=== PATIENT | female | born 1950 | race Two or more races ===

== ENCOUNTER 2023-05-01 11:12 | Emergency (ER) | payer OTHER, SELFPAY ==
[2023-05-01 11:23] VITALS: BP 137/67; PULSE 67; RESP 16; TEMP 36.9; O2SAT 97; BMI 24.6
--- NOTE | 2023-05-01 11:35 | CT_ITS ---
The [address] [address] Patient Name: CARINE SAEZ MRN: [id number] date: 1950 Sex: F Assigned Patient Location: ER Current Patient Location: ER Accession/Order Number: [id number] Exam Date: 05/01/2023 11:46 Report Date: 05/01/2023 12:38 At the request of: EDIS GOOD Procedure: CT abdomen pelvis wo con CT ABDOMEN AND PELVIS WITHOUT CONTRAST: 05/01/2023 11:46 AM EST Clinical Data: left sided abdominal pain Comparison: No previous Unenhanced helically acquired data per protocol. The lack of IV contrast material hampers evaluation of the viscera, for adenopathy, and of the vasculature. The lack of oral contrast medium to some extent hampers evaluation of the bowel. All CT scans at this facility use dose modulation, iterative reconstruction, and/or weight based dosing when appropriate to reduce radiation dose to as low as reasonably achievable. FINDINGS: LOWER THORAX: There is a slightly lobular solid nodule at the left lung base measuring 13 mm. It is relatively well-defined LIVER: No acute findings. SPLEEN: No acute findings. GB/BILIARY: Status post cholecystectomy. Biliary tree is not dilated. PANCREAS: No acute findings. ADRENALS: No acute findings. KIDNEYS/URETERS: Kidney are symmetric in size and density on this unenhanced study. There is no perinephric stranding. No calculi. No hydronephrosis or hydroureter. VESSELS: No AAA ABDOMINAL NODES: No obvious adenopathy. PELVIC NODES: No obvious adenopathy. BLADDER: Nearly empty. No calculi REPRODUCTIVE: Uterus is anteverted. The left ovary is unremarkable in appearance at CT. The right is either absent or is immediate juxtaposition and inseparable from a loop of bowel PERITONEUM: No free air. No free fluid. EXTRAPERITONEUM: No acute findings. BOWEL: No GI obstruction. Modest amount stool throughout most of the colon. A moderate amount of stool in the rectosigmoid region. The stomach contains a mild amount of fluid and air. Small bowel contains a mild amount of debris and air. Extensive splenic flecture and left colonic diverticulosis. On this study performed without oral contrast medium, no focally thickened loop of bowel is apparent. BODY WALL: Minimal umbilical hernia containing fat. Right inguinal hernia containing fat. BONES: No acute finding. Multilevel thoracolumbar DDD and some associated spondylosis. Facet DJD at several levels. OTHER: None CT/CT abdomen pelvis wo con IMPRESSION: 1. Extensive left colonic diverticulosis. However, no distinct evidence of diverticulitis on this exam. 2. No calculi. No hydronephrosis or hydroureter. 3. 13 mm solid nodule at the left lung base. To evaluate for multiplicity consideration to full chest CT at this time. Electronically authenticated by: SANDRO BLACK Date: 05/01/2023 12:38
[2023-05-01] MEDS: HYOSCYAMINE SULFATE 0.125 MG TAB.SUBL SL (12:10)
[2023-05-01] MEDS: 0.9 % SODIUM CHLORIDE 1,000 ML 999 ML IV (12:10)
[2023-05-01] MEDS: ONDANSETRON PF 4 MG/2 ML VIAL IV (12:10)
[2023-05-01 12:29] LABS: Basophils Absolute Auto 0.1 10^3/uL (0.0-0.1); Basophils Percent Auto 1.2 % (0.2-2.0); Eosinophils Absolute Auto 0.1 10^3/uL (0.0-0.7); Eosinophils Percent Auto 0.8 % (0.9-7.0); Hematocrit 39.5 % (36.0-48.0); Hemoglobin 12.9 g/dL (12.0-16.0); Immature Granulocytes Abs Auto 0.02 10^3/uL (0.00-0.03); Immature Granulocytes Pct Auto 0.3 % (0.0-0.5); Lymphocytes Absolute Auto 1.6 10^3/uL (1.2-3.8); Lymphocytes Percent Auto 21.1 % (20.5-60.0); Mean Corpuscular HGB Conc 32.7 g/dL (29.9-35.2); Mean Corpuscular Hemoglobin 27.9 pg (26.7-34.0); Mean Corpuscular Volume 85.5 fL (81.0-99.0); Mean Platelet Volume 11.5 fL (9.5-13.5); Monocytes Absolute Auto 0.5 10^3/uL (0.3-0.8); Monocytes Percent Auto 6.5 % (1.7-12.0); Neutrophils Absolute Auto 5.4 10^3/uL (1.4-6.5); Neutrophils Percent Auto 70.1 % (43.0-75.0); Platelet Count 280 10^3/uL (150-450); Red Blood Count 4.62 10^6/uL (4.20-5.40); Red Cell Distribution Width 13.6 % (11.0-15.0); White Blood Count 7.7 10^3/uL (4.0-11.0)
[2023-05-01 12:39] LABS: Alanine Aminotransferase 20 U/L (14-59); Albumin Globulin Ratio 0.9; Albumin Level 3.2 g/dL (3.4-5.0); Alkaline Phosphatase 95 U/L (46-116); Anion Gap 12.5; Aspartate Amino Transferase 15 U/L (15-37); BUN Creatinine Ratio 18.3; Bilirubin Total 0.4 mg/dL (0.2-1.0); Calcium 8.6 mg/dL (8.5-10.1); Carbon Dioxide 24.4 mmol/L (21.0-32.0); Chloride 105 mmol/L (98-107); Estimated GFR (African America >60 (>=60); Estimated GFR (Non-African Ame >60 (>=60); Globulin 3.7 g/dL; Glucose 147 mg/dL (74-106); Potassium 3.9 mmol/L (3.5-5.1); Sodium 138 mmol/L (136-145); Total Protein 6.9 g/dL (6.4-8.2)
--- NOTE | 2023-05-01 13:20 | ED.ABDPAIN1 ---
HPI - Abdominal Pain General Chief Complaint: Abdominal Pain Stated Complaint: LOWER ABDOMINAL PAIN Time Seen by Provider: 05/01/23 11:35 Source: family Source comment: Pt primary language is Espanol. -Akins Mode of arrival: ambulance Limitations: language barrier History of Present Illness HPI narrative: Patient presents with constant, stabbing left sided abdominal pain, rated 8-9/10 that began yesterday. Nausea but no vomiting or diarrhea. No urinary symptoms. No meds taken for the pain. Related Data Home Medications Medication Instructions Recorded Confirmed aspirin 81 mg tablet,delayed 81 mg PO DAILY 05/01/23 05/01/23 release (Adult Low Dose Aspirin) Previous Rx's Medication Instructions Recorded ciprofloxacin HCl 500 mg tablet 500 mg PO BID #14 tabs 05/01/23 (Cipro) hyoscyamine sulfate 0.125 mg 0.125 mg PO Q6H PRN abdominal pain 05/01/23 sublingual tablet (Levsin/SL) #20 tabs metronidazole 500 mg tablet 500 mg PO TID #21 tabs 05/01/23 ondansetron 4 mg disintegrating 4 mg PO Q6H PRN nausea and 05/01/23 tablet vomiting #14 tabs Allergies Allergy/AdvReac Type Severity Reaction Status Date / Time No Known Drug Allergies Allergy Verified 05/01/23 11:23 PFSH PFS Social History Smoking status: Unknown if ever smoked Exam Narrative Exam Narrative: Nurses notes and vital signs reviewed and patient is not hypoxic. afebrile General: Well-appearing and in no apparent distress. Skin: Warm, dry, no pallor noted. No rash. Eye: Pupils are equal, round and EOMI. No scleral icterus. Ears, Nose, Mouth, and Throat: Oral mucosa is moist Cardiovascular: Regular Rate and Rhythm without murmur, gallop or rub. Respiratory: No accessory muscle use or respiratory distress. Lungs are clear to auscultation, no wheezing, rales or rhonchi Back: No CVA tenderness Musculoskeletal: normal ROM GI: Abdomen is soft, non-distended. Normal bowel sounds. No masses appreciated. Diffuse left abdominal tenderness to palpation. No rebound, guarding, or rigidity noted. Neurological: A&O x4. No cranial nerve dysfunction observed. No truncal ataxia. Moves all extremities. Sensation intact. Psychiatric: Cooperative and interactive. Normal mood and affect. Constitutional Vital Signs, click to edit/add: Last Vital Signs Temp 98.4 F 05/01/23 11:23 Pulse 67 05/01/23 11:23 Resp 16 05/01/23 11:23 BP 137/67 05/01/23 11:23 Pulse Ox 97 05/01/23 11:23 O2 Del Method Room Air 05/01/23 11:23 Course Vital Signs Vital signs: Vital Signs Temperature 98.4 F 05/01/23 11:23 Pulse Rate 67 05/01/23 11:23 Respiratory Rate 16 05/01/23 11:23 Blood Pressure 137/67 05/01/23 11:23 Pulse Oximetry 97 05/01/23 11:23 Oxygen Delivery Method Room Air 05/01/23 11:23 Temperature 98.4 F 05/01/23 11:23 Pulse Rate 67 05/01/23 11:23 Respiratory Rate 16 05/01/23 11:23 Blood Pressure 137/67 05/01/23 11:23 Pulse Oximetry 97 05/01/23 11:23 Oxygen Delivery Method Room Air 05/01/23 11:23 MDM - Abdominal Pain MDM Narrative Medical decision making narrative: Normal WBC /unremarkable CBC & CMP. Negative Lipase. CT revealed extensive diverticulosis without acute diverticulitis but it was done without oral or IV contrast. Patient was given NS IVF, IV Zofran and Levsin for pain. She felt better after ED treatment. She was discharged home with prescriptions for cipro, flagyl, levsin and zofran. A industrial renderer was used through the department ipad to converse with the patient and family. . Lab Data Attestation: I reviewed the patient's lab results. Labs: Lab Results 05/01/23 Range/Units 12:05 WBC 7.7 (4.0-11.0) 10^3/uL RBC 4.62 (4.20-5.40) 10^6/uL Hgb 12.9 (12.0-16.0) g/dL Hct 39.5 (36.0-48.0) % MCV 85.5 (81.0-99.0) fL MCH 27.9 (26.7-34.0) pg MCHC 32.7 (29.9-35.2) g/dL RDW 13.6 (11.0-15.0) % Plt Count 280 (150-450) 10^3/uL MPV 11.5 (9.5-13.5) fL Neut % (Auto) 70.1 (43.0-75.0) % Lymph % (Auto) 21.1 (20.5-60.0) % [place] % (Auto) 6.5 (1.7-12.0) % Eos % (Auto) 0.8 L (0.9-7.0) % Baso % (Auto) 1.2 (0.2-2.0) % Neut # (Auto) 5.4 (1.4-6.5) 10^3/uL Lymph # (Auto) 1.6 (1.2-3.8) 10^3/uL [place] # (Auto) 0.5 (0.3-0.8) 10^3/uL Eos # (Auto) 0.1 (0.0-0.7) 10^3/uL Baso # (Auto) 0.1 (0.0-0.1) 10^3/uL Abs Immat Gran (auto) 0.02 (0.00-0.03) 10^3/uL Imm/Tot Granulo (auto) 0.3 (0.0-0.5) % Sodium 138 (136-145) mmol/L Potassium 3.9 (3.5-5.1) mmol/L Chloride 105 (98-107) mmol/L Carbon Dioxide 24.4 (21.0-32.0) mmol/L Anion Gap 12.5 BUN 13.0 (7.0-18.0) mg/dL Creatinine 0.71 (0.55-1.02) mg/dL Est GFR ( Amer) >60 (>=60) Est GFR (Non-Af Amer) >60 (>=60) BUN/Creatinine Ratio 18.3 Glucose 147 H (74-106) mg/dL Calcium 8.6 (8.5-10.1) mg/dL Total Bilirubin 0.4 (0.2-1.0) mg/dL AST 15 (15-37) U/L ALT 20 (14-59) U/L Alkaline Phosphatase 95 (46-116) U/L Total Protein 6.9 (6.4-8.2) g/dL Albumin 3.2 L (3.4-5.0) g/dL Globulin 3.7 g/dL Albumin/Globulin Ratio 0.9 Lipase 39.0 (16.0-77.0) U/L Imaging Data CT scan - abdomen: Attestation: I have reviewed the pertinent imaging results. Radiologist's impression: Patient Name: CARINE SAEZ MRN: [id number] date: 1950 Sex: F Assigned Patient Location: ER Current Patient Location: ER Accession/Order Number: [id number] Exam Date: 05/01/2023 11:46 Report Date: 05/01/2023 12:38 At the request of: EDIS GOOD Procedure: CT abdomen pelvis wo con CT ABDOMEN AND PELVIS WITHOUT CONTRAST: 05/01/2023 11:46 AM EST Clinical Data: left sided abdominal pain Comparison: No previous Unenhanced helically acquired data per protocol. The lack of IV contrast material hampers evaluation of the viscera, for adenopathy, and of the vasculature. The lack of oral contrast medium to some extent hampers evaluation of the bowel. All CT scans at this facility use dose modulation, iterative reconstruction, and/or weight based dosing when appropriate to reduce radiation dose to as low as reasonably achievable. FINDINGS: LOWER THORAX: There is a slightly lobular solid nodule at the left lung base measuring 13 mm. It is relatively well-defined LIVER: No acute findings. SPLEEN: No acute findings. GB/BILIARY: Status post cholecystectomy. Biliary tree is not dilated. PANCREAS: No acute findings. ADRENALS: No acute findings. KIDNEYS/URETERS: Kidney are symmetric in size and density on this unenhanced study. There is no perinephric stranding. No calculi. No hydronephrosis or hydroureter. VESSELS: No AAA ABDOMINAL NODES: No obvious adenopathy. PELVIC NODES: No obvious adenopathy. BLADDER: Nearly empty. No calculi REPRODUCTIVE: Uterus is anteverted. The left ovary is unremarkable in appearance at CT. The right is either absent or is immediate juxtaposition and inseparable from a loop of bowel PERITONEUM: No free air. No free fluid. EXTRAPERITONEUM: No acute findings. BOWEL: No GI obstruction. Modest amount stool throughout most of the colon. A moderate amount of stool in the rectosigmoid region. The stomach contains a mild amount of fluid and air. Small bowel contains a mild amount of debris and air. Extensive splenic flecture and left colonic diverticulosis. On this study performed without oral contrast medium, no focally thickened loop of bowel is apparent. BODY WALL: Minimal umbilical hernia containing fat. Right inguinal hernia containing fat. BONES: No acute finding. Multilevel thoracolumbar DDD and some associated spondylosis. Facet DJD at several levels. OTHER: None IMPRESSION: 1. Extensive left colonic diverticulosis. However, no distinct evidence of diverticulitis on this exam. 2. No calculi. No hydronephrosis or hydroureter. 3. 13 mm solid nodule at the left lung base. To evaluate for multiplicity consideration to full chest CT at this time. Electronically authenticated by: SANDRO BLACK Date: 05/01/2023 12:38 Discharge Plan Discharge Chief Complaint: Abdominal Pain Clinical Impression: Diverticulitis, Abdominal pain Patient Disposition: Home, Self-Care Time of Disposition Decision: 13:50 Prescriptions / Home Meds: New ciprofloxacin HCl [Cipro] 500 mg tablet 500 mg PO BID Qty: 14 0RF ondansetron 4 mg tablet,disintegrating 4 mg PO Q6H PRN (Reason: nausea and vomiting) Qty: 14 0RF metronidazole 500 mg tablet 500 mg PO TID Qty: 21 0RF hyoscyamine sulfate [Levsin/SL] 0.125 mg tablet, sublingual 0.125 mg PO Q6H PRN (Reason: abdominal pain) Qty: 20 0RF No Action aspirin [Adult Low Dose Aspirin] 81 mg tablet,delayed release (DR/EC) 81 mg PO DAILY Instructions: Diverticulitis (ED), Abdominal Pain (ED) Stand Alone Forms: Portal Instructions Referrals: Physician,Non-Staff, MD [Primary Care Provider] - 1 week
== END 2023-05-01 14:09 | disposition home or self-care (01) ==
PROVIDERS: Emergency Provider Emergency Medicine
DX: R10.9 Unspecified abdominal pain (principal); K57.32 Diverticulitis of large intestine without perforation or abscess without bleeding; Z79.82 Long term (current) use of aspirin
CPT/HCPCS: 36415; 74176; 80053; 83690; 85025; 96374; 99285

== ENCOUNTER 2024-01-01 09:31 | Emergency (ER) | payer OTHER, SELFPAY ==
[2024-01-01] VITALS (8 sets, daily range): BP systolic 145–158; BP diastolic 60–94; PULSE 35–50; TEMP 36.9; O2SAT 95–987; BMI 27.4
--- NOTE | 2024-01-01 09:42 | CT_ITS ---
[address] [address] Patient Name: MA. CARINE SAEZ MRN: [id number] date: 1950 Sex: F Assigned Patient Location: ED.MAIN Current Patient Location: Accession/Order Number: [id number] Exam Date: 01/01/2024 11:42 Report Date: 01/01/2024 12:58 At the request of: MADI HECTOR Procedure: CT abdomen pelvis w con EXAMINATION: CT abdomen pelvis w con, 01/01/2024 11:42 AM EDT HISTORY: Left lower quadrant pain, rule out diverticulitis COMPARISON: 05/01/2023 TECHNIQUE: CT of the abdomen, and pelvis was performed following administration of IV contrast. Oral contrast was not administered prior to the examination. Dose reduction techniques were achieved by using automated exposure control and/or adjustment of mA and/or kV according to patient size and/or use of iterative reconstruction technique. FINDINGS: Lung Bases: No acute findings in the visualized lower chest. Unchanged 1.2 cm nodule in the lingula. Partially visualized cardiac leads. Liver: Normal size and contour. Unchanged cyst in the left liver. Question steatosis, noting differential hypoattenuation as compared to the spleen could in part relate to contrast bolus timing. Biliary tree: Normal. Gallbladder: Cholecystectomy Spleen: Normal. Pancreas: Normal. Adrenal glands: Normal. Kidneys and ureters: Normal. Bladder: Mild bladder wall thickening likely relating to underdistention. Reproductive organs: Question 1.7 cm ventral uterine body myoma; uterus otherwise appears grossly unremarkable. No suspicious adnexal mass. Gastrointestinal tract: Nondilated. Colonic diverticulosis with distal descending colonic wall thickening centered about an ill-defined/inflamed diverticulum in keeping with acute diverticulitis; mild surrounding pericolonic inflammatory attenuation. The appendix is normal. Peritoneum/retroperitoneum: No free fluid or gas. No drainable collection. Vasculature: Atherosclerosis without aneurysm. Lymph nodes: Normal. Abdominal wall: Fat-containing right inguinal hernia and tiny umbilical hernia. Musculoskeletal: Degenerative change of the spine. CT/CT abdomen pelvis w con IMPRESSION: 1. Findings of acute uncomplicated diverticulitis distal descending colon. 2. Unchanged 1.2 cm pulmonary nodule in the lingula. 3. Minimal bladder wall thickening likely relating to underdistention. Correlate with urinalysis if there is clinical concern for cystitis. 4. Question hepatic steatosis. 5. Additional chronic findings as above. Electronically authenticated by: KAMRAN MONTALVO Date: 01/01/2024 12:58
--- NOTE | 2024-01-01 09:42 | ED.ABDPAIN1 ---
HPI - Abdominal Pain General Chief Complaint: Abdominal Pain Stated Complaint: LOWER ABDOMINAL PAIN Time Seen by Provider: 01/01/24 09:36 History of Present Illness HPI narrative: 73-year-old female presents to the emergency department for abdominal pain. It is in the left lower quadrant and it became severe last night. No vomiting fever or injury. No diarrhea. The pain is severe and continuous and worse if she pushes on it. Related Data Home Medications ?Medication ?Instructions ?Recorded ?Confirmed aspirin 81 mg tablet,delayed 81 mg PO DAILY 05/01/23 01/01/24 release (Adult Low Dose Aspirin) Allergies Allergy/AdvReac Type Severity Reaction Status Date / Time No Known Drug Allergies Allergy Verified 01/01/24 09:47 Review of Systems ROS Narrative A ten point review of systems is negative except as noted above. [facility] Medical History (Updated 01/01/24 @ 13:44 by Jere Marc MD) Lung nodule ?R91.1 - Solitary pulmonary nodule (ICD-10) Social History Smoking status: Unknown if ever smoked Exam Narrative Exam Narrative: Nurses note and vital signs reviewed and patient is not hypoxic. General: The patient appears in no apparent distress. Patient is resting comfortably on cart. Skin: Warm, dry, no pallor noted. There is no rash noted. Head: Normocephalic, atraumatic Eye: Normal conjunctiva, no drainage Ears, Nose, Mouth, and Throat: oral mucosa is moist. Nares patent. Cardiovascular: Regular Rate and Rhythm Respiratory: Patient is in no distress, no accessory muscle use, lungs are clear to auscultation, no wheezing, rales or rhonchi Back: non-tender GI: Normal bowel sounds, tenderness to the left lower quadrant without mass or distention. Musculoskeletal: The patient has no evidence of calf tenderness, no pitting edema, symmetrical pulses noted bilaterally Neurological: Awake and alert Psychiatric: Cooperative Constitutional Vital Signs, click to edit/add: Last Vital Signs Temp 98.4 F 01/01/24 09:37 Pulse 35 L 01/01/24 13:38 Resp 22 H 01/01/24 13:38 BP 152/64 H 01/01/24 13:38 Pulse Ox 987 H 01/01/24 12:47 O2 Del Method Room Air 01/01/24 12:47 Course Vital Signs Vital signs: Vital Signs Temperature 98.4 F 01/01/24 09:37 Pulse Rate 48 L 01/01/24 09:37 Respiratory Rate 16 01/01/24 09:37 Blood Pressure 158/63 H 01/01/24 09:37 Pulse Oximetry 95 01/01/24 09:37 Oxygen Delivery Method Room Air 01/01/24 09:37 Temperature 98.4 F 01/01/24 09:37 Pulse Rate 35 L 01/01/24 13:38 Respiratory Rate 22 H 01/01/24 13:38 Blood Pressure 152/64 H 01/01/24 13:38 Pulse Oximetry 987 H 01/01/24 12:47 Oxygen Delivery Method Room Air 01/01/24 12:47 MDM - Abdominal Pain MDM Narrative Medical decision making narrative: The patient presented with left lower quadrant pain and has a acute uncomplicated diverticulitis. For that issue she was given IV Cipro and Flagyl. When she was triaged she was noted to be bradycardic and remains bradycardic. Her heart rate is in the mid 30s. She had her pacemaker that she has now placed in 2012 and she has not had the battery changed. She does not recall hearing any tone is coming from it to indicate that the battery was dying. She has not had any dizziness or syncope. I have spoken to Dr. Patel,, environmental programs specialist as well as the hospitalist service and the patient is excepted at . The environmental programs specialist recommended that we give her a dose of IV atropine here. She remains hemodynamically stable and is stable and agreeable for transfer. Differential Diagnosis Differential diagnosis: Likely abdominal pain, calculus of kidney, constipation, diverticulitis, gastroenteritis and small bowel obstruction Lab Data Attestation: I reviewed the patient's lab results. Labs: Lab Results 01/01/24 01/01/24 Range/Units 10:00 10:03 WBC 12.4 H (4.0-11.0) 10^3/uL RBC 5.08 (4.20-5.40) 10^6/uL Hgb 13.7 (12.0-16.0) g/dL Hct 42.4 (36.0-48.0) % MCV 83.5 (81.0-99.0) fL MCH 27.0 (26.7-34.0) pg MCHC 32.3 (29.9-35.2) g/dL RDW 15.3 H (11.0-15.0) % Plt Count 244 (150-450) 10^3/uL MPV 12.4 (9.5-13.5) fL Neut % (Auto) 81.6 H (43.0-75.0) % Lymph % (Auto) 11.2 L (20.5-60.0) % [place] % (Auto) 5.6 (1.7-12.0) % Eos % (Auto) 0.6 L (0.9-7.0) % Baso % (Auto) 0.7 (0.2-2.0) % Neut # (Auto) 10.1 H (1.4-6.5) 10^3/uL Lymph # (Auto) 1.4 (1.2-3.8) 10^3/uL [place] # (Auto) 0.7 (0.3-0.8) 10^3/uL Eos # (Auto) 0.1 (0.0-0.7) 10^3/uL Baso # (Auto) 0.1 (0.0-0.1) 10^3/uL Abs Immat Gran (auto) 0.04 H (0.00-0.03) 10^3/uL Imm/Tot Granulo (auto) 0.3 (0.0-0.5) % Sodium 140 (136-145) mmol/L Potassium 3.6 (3.5-5.1) mmol/L Chloride 104 (98-107) mmol/L Carbon Dioxide 25.5 (21.0-32.0) mmol/L Anion Gap 14.1 BUN 10.0 (7.0-18.0) mg/dL Creatinine 0.83 (0.55-1.02) mg/dL Est GFR ( Amer) >60 (>=60) Est GFR (Non-Af Amer) >60 (>=60) BUN/Creatinine Ratio 12.0 Glucose 197 H (74-106) mg/dL Calcium 8.8 (8.5-10.1) mg/dL Urine Color Yellow (YELLOW) Urine Clarity Clear (CLEAR) Urine pH 5.5 (5.0-9.0) Ur Specific [place] >=1.030 A (1.005-1.025) Urine Protein Negative (NEG/TRACE) mg/dL Urine Glucose (UA) Negative (NEGATIVE) mg/dL Urine Ketones Negative (NEGATIVE) mg/dL Urine Occult Blood Negative (NEGATIVE) Urine Nitrite Negative (NEGATIVE) Urine Bilirubin Negative (NEGATIVE) Urine Urobilinogen 1.0 (0.2-1.0) EU/dL Ur Leukocyte Esterase Trace A (NEGATIVE) Urine RBC 0-2 (0-2) #/HPF Urine WBC 2-5 A (NONE SEEN) #/HPF Ur Squamous Epith Cells Few A (NONE/RARE) #/LPF Urine Crystals None seen (None Seen) #/HPF Urine Bacteria Moderate A (NONE SEEN) #/HPF Urine Casts None seen (NONE SEEN) #/LPF Urine Mucus Moderate A (NONE SEEN) Ur Culture Indicated? Yes Imaging Data CT scan - abdomen: Radiologist's impression: ITS Impressions Abdomen/Pelvis CT 01/01/24 09:42 IMPRESSION: 1. Findings of acute uncomplicated diverticulitis distal descending colon. 2. Unchanged 1.2 cm pulmonary nodule in the lingula. 3. Minimal bladder wall thickening likely relating to underdistention. Correlate with urinalysis if there is clinical concern for cystitis. 4. Question hepatic steatosis. 5. Additional chronic findings as above. Electronically authenticated by: KAMRAN MONTALVO Date: 01/01/2024 12:58 Chest X-Ray 01/01/24 11:34 IMPRESSION: No acute cardiopulmonary process. Electronically authenticated by: JENNA GONG Date: 01/01/2024 13:53 ECG Data Attestation: I personally reviewed and interpreted this ECG as follows: (EKG on my interpretation shows bradycardia with a junctional rate of approximately 35. She has P waves and each P wave is 8/10 of a second before the QRS. The P waves are regular and the QRS are regular as well. The possibility of third-degree heart block is entertained.) Critical Care Time Critical Care Time Critical Care Time: Yes Total Critical Care Time: 35 Attestation: Due to the high probability of sudden and clinically significant deterioration in the patient's condition he/she required the highest level of my preparedness to intervene urgently I provided critical care time including documentation time, medication orders and management, reevaluation, vital sign assessment, ordering and reviewing of lab tests, ordering and reviewing of x-ray studies, and admission orders. Aggregate critical care time is 35 minutes including only time during which I was engaged in work directly related to his/her care and did not include time spent treating other patients simultaneously. Discharge Plan Discharge Chief Complaint: Abdominal Pain Clinical Impression: Diverticulitis, Bradycardia Patient Disposition: [facility] Time of Disposition Decision: 13:43 Discharge Location: [facility] Condition: Fair Mode of Transportation: EMS
--- NOTE | 2024-01-01 10:08 | PC.NURSE ---
left lower abd pain, pt ambulates well to and from bathroom
[2024-01-01 10:42] LABS: Basophils Absolute Auto 0.1 10^3/uL (0.0-0.1); Basophils Percent Auto 0.7 % (0.2-2.0); Eosinophils Absolute Auto 0.1 10^3/uL (0.0-0.7); Eosinophils Percent Auto 0.6 % (0.9-7.0); Hematocrit 42.4 % (36.0-48.0); Hemoglobin 13.7 g/dL (12.0-16.0); Immature Granulocytes Abs Auto 0.04 10^3/uL (0.00-0.03); Immature Granulocytes Pct Auto 0.3 % (0.0-0.5); Lymphocytes Absolute Auto 1.4 10^3/uL (1.2-3.8); Lymphocytes Percent Auto 11.2 % (20.5-60.0); Mean Corpuscular HGB Conc 32.3 g/dL (29.9-35.2); Mean Corpuscular Volume 83.5 fL (81.0-99.0); Mean Platelet Volume 12.4 fL (9.5-13.5); Monocytes Absolute Auto 0.7 10^3/uL (0.3-0.8); Monocytes Percent Auto 5.6 % (1.7-12.0); Neutrophils Absolute Auto 10.1 10^3/uL (1.4-6.5); Neutrophils Percent Auto 81.6 % (43.0-75.0); Platelet Count 244 10^3/uL (150-450); Red Blood Count 5.08 10^6/uL (4.20-5.40); Red Cell Distribution Width 15.3 % (11.0-15.0); White Blood Count 12.4 10^3/uL (4.0-11.0)
[2024-01-01 10:43] LABS: Anion Gap 14.1; Calcium 8.8 mg/dL (8.5-10.1); Carbon Dioxide 25.5 mmol/L (21.0-32.0); Chloride 104 mmol/L (98-107); Estimated GFR (African America >60 (>=60); Estimated GFR (Non-African Ame >60 (>=60); Glucose 197 mg/dL (74-106); Potassium 3.6 mmol/L (3.5-5.1); Sodium 140 mmol/L (136-145)
[2024-01-01 10:52] LABS: Bilirubin Urine NEGATIVE (NEGATIVE); Blood Urine NEGATIVE (NEGATIVE); Clarity Urine CLEAR (CLEAR); Color Urine YELLOW (YELLOW); Glucose Urine UA NEGATIVE (NEGATIVE); Ketones Urine NEGATIVE (NEGATIVE); Leukocyte Esterase Urine TRACE (NEGATIVE); Nitrite Urine NEGATIVE (NEGATIVE); Protein Urine NEGATIVE (NEG/TRACE); Specific Gravity Urine >=1.030 (1.005-1.025); pH Urine 5.5 (5.0-9.0)
[2024-01-01 11:05] LABS: Bacteria Urine MODERATE #/HPF (NONE SEEN); Mucus Urine MODERATE (NONE SEEN); RBC Urine 0-2 #/HPF (0-2); Squamous Epithelial Cell Urine FEW #/LPF (NONE/RARE)
[2024-01-01 11:06] LABS: Cast Seen? NONE SEEN #/LPF (NONE SEEN); Crystals Seen? None Seen #/HPF (None Seen); Urine Culture Indicated YES
--- NOTE | 2024-01-01 11:11 | ECG_ITS ---
The [facility] Test Date: 2024-01-01 Pat Name: MA. 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
--- NOTE | 2024-01-01 11:34 | XR_ITS ---
The [address] [address] Patient Name: MA. CARINE SAEZ MRN: [id number] date: 1950 Sex: F Assigned Patient Location: ER Current Patient Location: ED.MAIN Accession/Order Number: [id number] Exam Date: 01/01/2024 11:54 Report Date: 01/01/2024 13:53 At the request of: MADI HECTOR Procedure: XR chest 1V EXAM: XR chest 1V INDICATION: Bradycardia. COMPARISON: None. TECHNIQUE: Single frontal view of the chest FINDINGS: Right-sided ICD in place. Enlarged cardiac silhouette. No acute infiltrative process. No pleural effusion or pneumothorax. No acute osseous abnormality. XR/XR chest 1V IMPRESSION: No acute cardiopulmonary process. Electronically authenticated by: JENNA GONG Date: 01/01/2024 13:53
--- NOTE | 2024-01-01 11:43 | PC.NURSE ---
pt reports having a pace maker, originally this was placed on her left side and not working so pace maker placed on right side per pt. Pt reports this procedure done at the [facility] some time ago and has not had this device checked in a long time. EKG done for incidental finding of bradycardia and no pacer spikes indicating pace maker working at this time. And pt is asymptomatic with this bradycardia. Pt will get a chest xray to see pace maker placement as ER DR aware of this finding.
[2024-01-01] MEDS: METRONIDAZOLE/SODIUM CHLORIDE 500 MG/100 ML PREMIX 100 MG IV ×2 (13:24→21:35)
[2024-01-01] MEDS: CIPROFLOXACIN IN 5 % DEXTROSE 400 MG/200 ML PREMIX 200 MG IV (14:03)
[2024-01-01] MEDS: ATROPINE SULFATE 1 MG/10 ML SYRINGE IVP (15:06)
== END 2024-01-01 22:36 | disposition short-term general hospital (02) ==
PROVIDERS: Emergency Provider Emergency Medicine
DX: K57.32 Diverticulitis of large intestine without perforation or abscess without bleeding (principal); R00.1 Bradycardia, unspecified
CPT/HCPCS: 36415; 71045; 74177; 80048; 81001; 85025; 87086; 93005; 96365; 96366; 96367; 96375; 99285; J0461; J0744; J1836; Q9967